=== PATIENT | female | born 2000 | race American Indian/Alaskan Native ===

== ENCOUNTER 2021-07-06 09:52 | Emergency (ER) | payer SELFPAY ==
--- NOTE | 2021-07-06 10:53 | Emergency Department Report ---
ED ENT HPI - General Chief complaint: Sore Throat Stated complaint: SORE THROAT WITH BODYACHES Time Seen by Provider: 07/06/21 10:05 Source: patient Mode of arrival: Ambulatory Limitations: No Limitations - History of Present Illness Initial comments: Patient is a 20-year-old female presents emergency room complaints of a sore throat that began 3 days ago. She has associated left-sided ear pain, discomfort with swallowing, chills, body aches, swollen lymph nodes, headache. she denies any fever, cough, shortness of breath, vomiting, diarrhea. States that she did get tested for COVID-19 and reports it was negative. No past medical history. No allergies to medications.she states she frequently gets ear infections. - Related Data Previous Rx's Medication Instructions Recorded Last Taken Type Butalb/Acetaminophen/Caffeine 1 cap PO Q8HR PRN #10 cap 07/06/21 Unknown Rx [Fioricet 50-300-40 mg CAP] Nystas/Diphen/Xyl Visc/Mylanta 30 ml MM Q4H PRN #300 ml 07/06/21 Unknown Rx [Magic Mouthwash] guaiFENesin ER [Mucinex ER] 600 mg PO Q12H #14 tablet.er 07/06/21 Unknown Rx Allergies Allergy/AdvReac Type Severity Reaction Status Date / Time No Known Allergies Allergy Unverified 07/06/21 09:59 ED Dental HPI - General Chief complaint: Sore Throat Stated complaint: SORE THROAT WITH BODYACHES Time Seen by Provider: 07/06/21 10:05 Source: patient Mode of arrival: Ambulatory Limitations: No Limitations - Related Data Previous Rx's Medication Instructions Recorded Last Taken Type Butalb/Acetaminophen/Caffeine 1 cap PO Q8HR PRN #10 cap 07/06/21 Unknown Rx [Fioricet 50-300-40 mg CAP] Nystas/Diphen/Xyl Visc/Mylanta 30 ml MM Q4H PRN #300 ml 07/06/21 Unknown Rx [Magic Mouthwash] guaiFENesin ER [Mucinex ER] 600 mg PO Q12H #14 tablet.er 07/06/21 Unknown Rx Allergies Allergy/AdvReac Type Severity Reaction Status Date / Time No Known Allergies Allergy Unverified 07/06/21 09:59 ED Review of Systems ROS: Stated complaint: SORE THROAT WITH BODYACHES Other details as noted in HPI Comment: All other systems reviewed and negative ED Past Medical Hx - Medications Home Medications: Home Medications Medication Instructions Recorded Confirmed Last Taken Type Butalb/Acetaminophen/Caffeine 1 cap PO Q8HR PRN #10 cap 07/06/21 Unknown Rx [Fioricet 50-300-40 mg CAP] Nystas/Diphen/Xyl Visc/Mylanta 30 ml MM Q4H PRN #300 ml 07/06/21 Unknown Rx [Magic Mouthwash] guaiFENesin ER [Mucinex ER] 600 mg PO Q12H #14 tablet.er 07/06/21 Unknown Rx ED Physical Exam - General Limitations: No Limitations General appearance: alert, in no apparent distress - Head Head exam: Present: atraumatic, normocephalic - Eye Eye exam: Present: normal appearance - ENT ENT exam: Present: mucous membranes moist, TM's normal bilaterally, normal external ear exam, other (posterior oropharynx erythema, mild tonsillar hypertrophy, no exudates, uvula is midline, no uvular edema or deviation, no trismus, no tongue elevation, no muffled voice) - Respiratory Respiratory exam: Present: normal lung sounds bilaterally. Absent: respiratory distress, wheezes, rales, rhonchi, stridor, chest wall tenderness, accessory muscle use, decreased breath sounds, prolonged expiratory - Cardiovascular Cardiovascular Exam: Present: regular rate, normal rhythm, normal heart sounds. Absent: systolic murmur, diastolic murmur, rubs, gallop - Neurological Exam Neurological exam: Present: alert, oriented X3 - Psychiatric Psychiatric exam: Present: normal affect, normal mood - Skin Skin exam: Present: warm, dry, intact ED Course Vital Signs 07/06/21 07/06/21 07/06/21 09:56 11:09 11:21 Temperature 99.6 F 99.0 F Pulse Rate 106 H 92 H Respiratory 18 16 16 Rate Blood Pressure 113/78 Blood Pressure 104/72 [Right] O2 Sat by Pulse 96 97 Oximetry ED Medical Decision Making - Lab Data Vital Signs 07/06/21 07/06/21 07/06/21 09:56 11:09 11:21 Temperature 99.6 F 99.0 F Pulse Rate 106 H 92 H Respiratory 18 16 16 Rate Blood Pressure 113/78 Blood Pressure 104/72 [Right] O2 Sat by Pulse 96 97 Oximetry - Medical Decision Making Patient is a 20-year-old female presents emergency room complaints of a sore throat that began 3 days ago. She has associated left-sided ear pain, discomfort with swallowing, chills, body aches, swollen lymph nodes, headache. she denies any fever, cough, shortness of breath, vomiting, diarrhea. States that she did get tested for COVID-19 and reports it was negative. No past medical history. No allergies to medications.she states she frequently gets ear infections. on exam:posterior oropharynx erythema, mild tonsillar hypertrophy, no exudates, uvula is midline, no uvular edema or deviation, no trismus, no tongue elevation, no muffled voice. Rapid strep is negative. Patient given dexamethasone IM and ibuprofen on the emergency department with improvement of her symptoms. Patient given prescriptions for medications for symptomatic relief. Symptoms likely related to URI versus viral pharyngitis. Discussed the importance of outpatient follow-up. Discussed return precautions. Advised patient Please take medication as prescribed. Increase your fluid intake. Gargle with warm salt water. Follow-up with your primary care doctor. Follow- up with a ear nose and throat doctor. Return to emergency room for any new or worsening symptoms. Critical care attestation.: If time is entered above; I have spent that time in minutes in the direct care of this critically ill patient, excluding procedure time. ED Disposition Clinical Impression: Upper respiratory infection Qualifiers: URI type: unspecified URI Qualified Code(s): J06.9 - Acute upper respiratory infection, unspecified Disposition: 01 HOME / SELF CARE / HOMELESS Is pt being admited?: No Does the pt Need Aspirin: No Condition: Stable Instructions: Viral Respiratory Infection Additional Instructions: Please take medication as prescribed. Increase your fluid intake. Gargle with warm salt water. Follow-up with your primary care doctor. Follow-up with a ear nose and throat doctor. Return to emergency room for any new or worsening symptoms. Prescriptions: Butalb/Acetaminophen/Caffeine [Fioricet 50-300-40 mg CAP] 1 cap PO Q8HR PRN #10 cap PRN Reason: headache Nystas/Diphen/Xyl Visc/Mylanta [Magic Mouthwash] 30 ml MM Q4H PRN #300 ml PRN Reason: sore throat guaiFENesin ER [Mucinex ER] 600 mg PO Q12H #14 tablet.er Referrals: VIRGINIA SORENSEN MD [Referring] - 2-3 Days CLAUDIA LUCAS MD [Staff Physician] - 2-3 Days your, primary care doctor [Other] - 2-3 Days Time of Disposition: 10:52 Print Language: AZERI
[2021-07-06] MEDS ORDERED: dexAMETHasone 4 MG/ML VIAL IM ONE (10:57)
[2021-07-06] MEDS ORDERED: IBUPROFEN 600 MG TAB PO ONE (10:57)
[2021-07-06 11:28] VITALS: BP 104/72
== END 2021-07-06 11:33 | disposition home or self-care (01) ==
LOC: ED 09:52
DX: J06.9 Acute upper respiratory infection, unspecified (principal); Z79.899 Other long term (current) drug therapy
CPT/HCPCS: 87116; 87430; 96372; 99283; J1100

== ENCOUNTER 2021-12-15 22:30 | Emergency (ER) | payer OTHER ==
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
[2021-12-16] MEDS ORDERED: KETOROLAC 10 MG TAB PO ONE (01:07)
[2021-12-16] MEDS ORDERED: CYCLOBENZAPRINE 10 MG TAB PO ONE (01:07)
[2021-12-16] MEDS ORDERED: predniSONE 20 MG TAB PO ONE (01:07)
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
[2021-12-16 01:50] VITALS: BP 112/65
== END 2021-12-16 02:43 | disposition home or self-care (01) ==
LOC: ED 22:30
DX: M25.512 Pain in left shoulder (principal); V89.2XXA Person injured in unspecified motor-vehicle accident, traffic, initial encounter; Y93.89 Activity, other specified; Y92.89 Other specified places as the place of occurrence of the external cause; Y99.8 Other external cause status
CPT/HCPCS: 99283